=== PATIENT | male | born 1990 | race Caucasian/White ===

== ENCOUNTER 2019-01-19 12:08 | Emergency (ER) | payer OTHER ==
[~2019-01-19] VITALS: Ht 177.8 cm; Wt 113.4 kg
[~2019-01-19 12:08] MED LIST: NOHOMEMEDICATIONS; PERCOCET 5-3251 EACH PO
[2019-01-19] MEDS ORDERED: IBUPROFEN 800800 M1 PO (12:33)
[2019-01-19] MEDS ORDERED: PENICILLIN VK500 MG PO (12:33)
[2019-01-19 13:04] VITALS: BP 139/85
== END 2019-01-19 13:05 | disposition home or self-care (01) ==
LOC: M.ERS 12:08
DX: K04.7 Periapical abscess without sinus (principal); J45.909 Unspecified asthma, uncomplicated; F17.200 Nicotine dependence, unspecified, uncomplicated

== ENCOUNTER 2019-08-22 00:27 | Emergency (ER) | payer OTHER ==
[~2019-08-22] VITALS: Ht 177.8 cm; Wt 113.4 kg
[~2019-08-22 00:27] MED LIST changes: +IBUPROFEN 800800 M1 PO; +PENICILLIN VK500 MG PO
[2019-08-22] MEDS ORDERED: TRAMADOL 50 MG50 MG PO (02:39)
[2019-08-22 03:00] VITALS: BP 153/96
== END 2019-08-22 03:00 | disposition home or self-care (01) ==
LOC: M.ERS 00:27
DX: R07.81 Pleurodynia (principal); J45.909 Unspecified asthma, uncomplicated